=== PATIENT | male | born 1950 | race Caucasian/White ===

== ENCOUNTER 2016-11-09 19:31 | Inpatient (IN) | payer MEDICARE, OTHER ==
[~2016-11-09] VITALS: Ht 175.3 cm; Wt 86.8 kg
--- NOTE | ~2016-11-09 | CON ---
PATIENT'S NAME: MADDISON IBARRA [facility] AGE: 66 Y [address] ROOM: [place] [address] LOCATION: [facility] ADMIT DATE: 11/09/2016 Consultation DISCHARGE DATE: FAMILY PHYSICIAN: Marjorie Caicedo MD ATTENDING PHYSICIAN: MARJORIE CAMARA DATE OF CONSULTATION: 11/10/2016 REFERRING PHYSICIAN: MARJORIE CAMARA MD CONSULT REQUESTED BY: Dr. Camara. REASON FOR CONSULTATION: Thoracic spine fracture. PATIENT IDENTIFICATION: Mr. Maddison Ibarra is a 66-year-old male. PRESENTING COMPLAINT: Fall from pivot. HISTORY OF PRESENT ILLNESS: The patient fell from a pivot on November 09, 2016. He sustained a fracture of his left femur as well as a small thoracic spine fracture. His femur fracture has been fixed, and I was consulted to see him for his thoracic spine fracture. The patient says he is only vaguely aware of the thoracic pain. It does not bother him to any significant degree. PAST MEDICAL HISTORY: Significant for Parkinson disease. The patient was also checked for multiple myeloma last year, but it appears he does not have multiple myeloma. CURRENT MEDICATIONS: Please see chart. ALLERGIES: PLEASE SEE CHART. REVIEW OF SYSTEMS: A 10-point review of systems was carried out. The only abnormal findings are as described in the History of Present Illness. FAMILY HISTORY: Noncontributory. PATIENT'S NAME: MADDISON IBARRA [facility] AGE: 66 Y [address] ROOM: [place] [address] LOCATION: [facility] ADMIT DATE: 11/09/2016 Consultation DISCHARGE DATE: FAMILY PHYSICIAN: Marjorie Caicedo MD ATTENDING PHYSICIAN: MARJORIE CAMARA PHYSICAL EXAMINATION: NEUROLOGIC: The patient is a healthy-looking male who is alert and cooperative through the examination. Speech is intact. Cranial Nerves: No deficits seen. Motor Examination: The patient has had surgery to his left femur. Otherwise, he has normal strength in all the muscle groups of his upper and lower extremities. CARDIOVASCULAR: Heart sounds present. RESPIRATORY: The patient is not short of breath at bedside. HEAD: His head is atraumatic. EYES AND EARS: No evidence of trauma. SKIN: No skin rashes or skin masses. REVIEW OF IMAGING STUDIES: The patient has had a thoracic spine CT done. The CT scan shows a mild compression fracture of the superior endplate of the T4 vertebra. There is no retropulsion. There is no spinal canal compromise. ASSESSMENT: A 66-year-old male with mild thoracic spine compression fracture. MEDICAL DECISION MAKING: At this time, there is no indication for neurosurgical intervention. The patient can ambulate with therapy. I have asked him to let us know if his pain increases, and we will repeat an x-ray to check the fracture at that time. For now, the patient does not require any neurosurgical intervention. MD PORSHA [place]/modl /[id number] d: 11/11/16 1130 t: 11/15/16 1552, CONSULTATION REPORT
--- NOTE | ~2016-11-09 | HP ---
PATIENT'S NAME: MADDISON IBARRA [facility] AGE: 66 Y [address] ROOM: [place] [address] LOCATION: [facility] ADMIT DATE: 11/09/2016 History & Physical DISCHARGE DATE: FAMILY PHYSICIAN: Marjorie Caicedo MD ATTENDING PHYSICIAN: MARJORIE CAMARA DATE OF SERVICE: HISTORY OF PRESENT ILLNESS: Mr. Ibarra is a 66-year-old male transferred from [place] after having been diagnosed with a left hip fracture as a result of a fall (from a height of approximately 12 feet) off a pivot. The accident occurred this afternoon. He was unable to get up because of left hip pain. He was unable to get into a vehicle with assistance. He was taken to the local emergency room by ambulance, where he was diagnosed with a femoral neck fracture. He denies history of preexisting left hip pain. He complains of upper thoracic spine pain. He notes generalized, partially decreased sensation to light touch in his left foot. He has chronic cervical spine pain, but this is no more severe compared to baseline. He denies pain in his other 3 extremities. He states he landed directly on his left side. At baseline, the patient is an independent community ambulator. He has Parkinson disease, but he still is completely independent and requires no assistive device for ambulation. ACTIVE MEDICAL PROBLEMS: Parkinson disease and history of osteoporosis (diagnosed by DEXA scan and treated with Prolia). PRESENT MEDICATIONS: 1. Selegiline. 2. Sinemet. ALLERGIES: ASPIRIN AND MORPHINE. SOCIAL HISTORY: . He smoked for 50 years, but discontinued last month. He is accompanied by his . PAST SURGICAL HISTORY: Includes removal of an unspecified cyst from his left foot by a legal instructor earlier this year. REVIEW OF SYSTEMS: He denies chest pain or shortness of breath. He denies history of deep venous thrombosis. He denies lumbar spine pain. PATIENT'S NAME: MADDISON IBARRA [facility] AGE: 66 Y [address] ROOM: [place] [address] LOCATION: [facility] ADMIT DATE: 11/09/2016 History & Physical DISCHARGE DATE: FAMILY PHYSICIAN: Marjorie Caicedo MD ATTENDING PHYSICIAN: MARJORIE CAMARA PHYSICAL EXAMINATION: GENERAL: Alert, oriented, well-hydrated, well-nourished, stoic gentleman, who is in no distress. MUSCULOSKELETAL: He is holding his left leg slightly flexed and externally rotated at the hip, but there does not appear to be a significant leg-length discrepancy. Left hip range of motion is not assessed due to the diagnosed fracture. There is no pain with passive range of motion of the right hip. There is no swelling, tenderness, effusion, or deformity at either knee. There is no swelling, tenderness, or deformity at either ankle. He demonstrates no pain with active range of motion of all joints in both upper extremities. There is no pain with active range of motion of his cervical spine. Sensation to light touch is present throughout the left foot, but subjectively decreased throughout the left foot. There is no peripheral edema in either lower extremity. There are no active skin lesions throughout either lower extremity. Dorsiflexion and plantar flexion strength of the left ankle are both 4/5. 2+ posterior tibial pulse bilaterally. RADIOGRAPHS: Left hip radiographs demonstrate an angulated femoral neck fracture. There is no lytic lesion. There is no hardware. There is no joint space narrowing. The left hip fracture is further evaluated via CT scan. There is apex anterior angulation of the femoral neck fracture of approximately 45 to 60 degrees, but there is no significant shortening. There is no significant displacement (the deformity appears to be purely angular). The patient had CT scans of his entire spine, chest, abdomen, and pelvis upon arrival in the emergency room. These were ordered by the emergency room physician. The radiologist has interpreted the thoracic spine CT scan as demonstrating a nondisplaced thoracic 4th vertebral body fracture. IMPRESSION: Markedly angulated left femoral neck fracture without significant displacement. Parkinson disease. History of osteoporosis. History of cervical spine degenerative disk disease. Nondisplaced fracture of thoracic vertebral body #4. RECOMMENDATIONS: I had a lengthy discussion (with the patient and his ) regarding relative risks, benefits, and limitations of internal fixation versus hemiarthroplasty versus total hip arthroplasty versus nonoperative treatment. The patient has elected to proceed with reduction and internal fixation with cannulated screws. He understands and acknowledges potential adverse sequelae of the injury itself as well as risks, benefits, limitations, and alternatives to this procedure. We have specifically discussed the potential for PATIENT'S NAME: MADDISON IBARRA [facility] AGE: 66 Y [address] ROOM: [id number] [place], [place] [address] LOCATION: [facility] ADMIT DATE: 11/09/2016 History & Physical DISCHARGE DATE: FAMILY PHYSICIAN: Marjorie Caicedo MD ATTENDING PHYSICIAN: MARJORIE CAMARA infection, deep venous thrombosis, pulmonary embolism, neurovascular complications, blood transfusion risks, malunion, nonunion, avascular necrosis, and the potential need for conversion to hemiarthroplasty versus total hip arthroplasty. I have informed the patient that I perceive an approximately 50% chance of success and a 50% combined risk of avascular necrosis, malunion, or nonunion (under which circumstances, he would need to be converted to hip arthroplasty). He would prefer to accept these risks in favor of attempting to salvage his own hip. We have discussed the anticipated necessity for 8 weeks of toe-touch weightbearing. The patient has been placed at bedrest. Mechanical DVT prophylaxis and incentive spirometry will be initiated. The Spine team will be consulted to evaluate and make treatment recommendations for his thoracic spine fracture. We will proceed to surgery this evening. Informed consent has been granted by the patient and his spouse. MD YAMILETH MOTA/sallyl /[id number] D: 259 T: 753 HISTORY & PHYSICAL
--- NOTE | ~2016-11-09 | OR ---
PATIENT'S NAME: MADDISON IBARRA [facility] AGE: 66 Y [address] ROOM: [facility] [place], [place] [address] LOCATION: [facility] ADMIT DATE: 11/09/2016 OR/Procedure Report DISCHARGE DATE: FAMILY PHYSICIAN: Marjorie Caicedo MD ATTENDING PHYSICIAN: MARJORIE CAMARA SURGEON: Marjorie Camara MD YEAST CULTURE DEVELOPER: None. DATE OF PROCEDURE: 11/09/2016 PREOPERATIVE DIAGNOSIS: Left femoral neck fracture. POSTOPERATIVE DIAGNOSIS: Left femoral neck fracture. PROCEDURE PERFORMED: Closed reduction and percutaneous internal fixation of left femoral neck fracture. ANESTHESIA: General endotracheal anesthesia. ESTIMATED BLOOD LOSS: Less than 5 mL. DRAINS: None. SPECIMEN: None. COMPLICATIONS: None. IMPLANTS: [place] Asnis 8.0 mm partially threaded cannulated cancellous screws x3. INDICATION FOR PROCEDURE: Mr. Ibarra is a 66-year-old male who fell approximately 12 feet off a pivot landing on his left hip with resultant left hip fracture earlier today. Preoperative plain radiographs and CT scan of the left hip demonstrate a significantly angulated transcervical noncomminuted fracture with significant apex anterior angulation but minimal displacement. Risks, benefits, limitations, and alternatives to this procedure have been thoroughly reviewed and informed consent has been granted. I have informed the patient that he has an approximately 50% combined risk of developing avascular necrosis, symptomatic malunion, and/or nonunion (under which circumstances, conversion to hip arthroplasty may be necessary). The patient has expressed a preference to attempt to salvage his own hip. We have discussed the potential for infection, neurovascular complications, deep venous thrombosis, pulmonary embolism, and blood transfusion risks as well. Informed consent granted. DESCRIPTION OF PROCEDURE: The patient positioned supine on the fracture table PATIENT'S NAME: MADDISON IBARRA [facility] AGE: 66 Y [address] ROOM: [facility] [place], [place] [address] LOCATION: [facility] ADMIT DATE: 11/09/2016 OR/Procedure Report DISCHARGE DATE: FAMILY PHYSICIAN: Marjorie Caicedo MD ATTENDING PHYSICIAN: MARJORIE CAMARA after administration of general endotracheal anesthesia and prophylactic antibiotics. Both feet and ankles were well padded. The right foot was placed into a stirrup-type leg mckeon. A well-padded groin post was placed. The left foot was placed into a traction boot. The hip was reduced under fluoroscopic guidance by applying longitudinal traction through the left foot followed by internal rotation until anatomic reduction was confirmed under AP and lateral fluoroscopic guidance. The lateral aspect of the left hip was subsequently prepped and draped with vigilant sterile technique. The lateral cortex of the proximal femur was approached through a direct lateral longitudinal incision which was carried sharply through the iliotibial band. Three parallel guidewires were placed in an inverted triangular configuration, and the three partially threaded cannulated cancellous screws were placed over the guidewires to the appropriate depth. Anatomic reduction and appropriate placement of all hardware was confirmed under AP and lateral fluoroscopic guidance. The incision was thoroughly irrigated with sterile saline containing bacitracin several times throughout the operation. The fascia was closed with multiple simple interrupted #1 Vicryl sutures. The skin was closed with superficial buried interrupted 2-0 Vicryl sutures, followed by a running subcuticular 3-0 Monocryl suture, followed by Dermabond, followed by Steri- Strips with benzoin. The dressing consisted of an occlusive Mepilex dressing. There were no complications. MD YAMILETH MOTA/jason /[id number] d: 11/10/16 0331 t: 11/14/16 0756, OPERATIVE SUMMARY
--- NOTE | ~2016-11-09 | ER ---
PATIENT'S NAME: MADDISON IBARRA [facility] AGE: 66 Y [address] ROOM: [place] [address] LOCATION: [facility] ADMIT DATE: 11/09/2016 ER/Outpatient Report DISCHARGE DATE: FAMILY PHYSICIAN: Marjorie Caicedo MD ATTENDING PHYSICIAN: MARJORIE CAMARA Admission date and time documented on the medical record. I saw the patient at 1930 hours. CHIEF COMPLAINT: 15 foot fall off center pivot. HISTORY OF PRESENT ILLNESS: The patient is a 66-year-old male, who was up on a center pivot, lost his balance, fell about 15 feet landing on his left side on the ground. Taken to [place], [place] and was found to have a femoral neck fracture of the left hip. Transferred by ground ambulance to [facility] for further evaluation and treatment. On arrival, the patient was awake, alert, responsive. He had some pain between his shoulder blades, mid thoracic spine area, and his left hip. He does not think he hit his head. Does not think he had lost consciousness. No chest pain, shortness of breath. No abdominal pain. No abdominal distention. No nausea, vomiting, or diarrhea. No incontinence of stool or urine. No other extremity pain other than the left hip that radiates pain down to his left knee. No upper extremity pain. No recent coughs, colds, flus, fever, chills, or sweats. He has not smoked for 6 weeks. No lightheadedness or dizziness. No skin eruptions or rash. He does have a history of Parkinson's. No psych issues or endocrine problems. HOME MEDICATIONS: See attached medication list. ALLERGIES: ASPIRIN, MORPHINE, AND SULFATE. SOCIAL HISTORY: Nonsmoker x6 weeks, nondrinker. SIGNIFICANT PAST MEDICAL HISTORY: Remote tobacco abuse. Parkinson disease. OPERATIONS: Cyst removed from left foot, left shoulder, and fatty lipoma from his back. REVIEW OF SYSTEMS: PATIENT'S NAME: MADDISON IBARRA [facility] AGE: 66 Y [address] ROOM: [place] [address] LOCATION: [facility] ADMIT DATE: 11/09/2016 ER/Outpatient Report DISCHARGE DATE: FAMILY PHYSICIAN: Marjorie Caicedo MD ATTENDING PHYSICIAN: MARJORIE CAMARA All systems reviewed by me are negative with the exception of those discussed in the history of present illness. PHYSICAL EXAMINATION: VITAL SIGNS: Temperature 97.3, tympanic; pulse 93; respirations 16; blood pressure 134/64; O2 saturation on room air is 98%. HEENT: Head: Normocephalic. No abrasion, contusion, laceration, swelling of the scalp or face. EYES: Extraocular muscles are intact. PERRL. Sclerae and conjunctivae are clear, nonicteric. No hyphema. No subconjunctival hemorrhages. Ears: Clear TMs bilaterally. NOSE: Clear. THROAT: Clear. Mucous membranes are moist. Teeth and jaw intact. NECK: No tenderness. Range of motion is full. No nuchal rigidity. No thyromegaly or cervical adenopathy. SPINE: Some mild tenderness between his shoulder blades, but no step-off fracture deformity. LUNGS: Clear. Good air flow. No rales, rhonchi, or wheezes. HEART: Regular. Pulses are palpable. No chest wall or ribcage pain to palpation. ABDOMEN: Soft, flat, nondistended, nontender. Active bowel tones. No organomegaly or abnormal masses palpable. No CVA tenderness. PELVIS: Stable and nontender. EXTREMITIES: Moves all 4 extremities other than left lower extremity. He has a left femoral neck fracture, swelling. NEUROVASCULAR: Intact. Pulses are intact. SKIN: Clear. No skin eruptions or rash. DIAGNOSTIC DATA: CT scan of the head showed no intracranial bleed, midline shift, mass effect, or skull fracture. CT scan of the cervical spine showed no acute fracture or subluxation. CT scan of the thoracic spine showed no subluxation. He did have a tiny endplate compression at T4. Lumbosacral spine showed no acute fracture or subluxation. Chest CT showed no mediastinal changes. No rib fractures. No pulmonary contusion, pneumothorax, pleural effusions. CT scan of the abdomen and pelvis showed left femoral neck fracture of the hip. No other pelvic injuries. No solid organ injuries. No free fluid, free air. All CT scans were read by Radiology, see dictated transcribed reports. Pelvis, left hip plain film shows a femoral neck fracture of the left hip. We will review all plain films with the radiologist and orthopedic surgeon. LABORATORY DATA: White count is 13,700, 82 segs, 10 lymphs, 7 monos, 1 eosinophil. Hemoglobin is 15.1 with hematocrit of 45.4, platelet count is 292,000. PTT was 26, pro time is 10.4 with an INR of 1.0. Clot tube drawn. Urine on a cath specimen PATIENT'S NAME: MADDISON IBARRA [facility] AGE: 66 Y [address] ROOM: [place] [address] LOCATION: [facility] ADMIT DATE: 11/09/2016 ER/Outpatient Report DISCHARGE DATE: FAMILY PHYSICIAN: Marjorie Caicedo MD ATTENDING PHYSICIAN: MARJORIE CAMARA showed rare whites, 0-2 reds, 0-2 epithelial cells, negative bacteria per high- powered field, negative nitrites on dipstick. CMS was normal except for low calcium of 8.1, low alkaline phosphatase of 29, low ALT of 10. CPK was elevated at 533. [id number] cardiac enzymes were normal. Normal saline was started at 125 mL an hour. The patient was kept n.p.o., was given fentanyl 50 mcg IV in the emergency room for pain. Discussed the patient with Dr. Camara, orthopedic surgeon. Dr. Camara did come down to the emergency room to evaluate the patient. We will proceed on his recommendations. IMPRESSION: A 15-foot fall from a center pivot landing on dirt, left side, suffering a femoral neck fracture, left hip. The patient also has a tiny endplate compression fracture T4 on CT scan. No other injuries were found. PLAN: The patient will be taken to operation by Dr. Camara for fixation repair, left femoral neck hip fracture. Discussion ensued with the patient concerning my findings and recommendations, he understands. MD MINA LASSITER/modl /[id number] d: 11/10/16116 t: 11/10/163, OUTPATIENT REPORT
[2016-11-09 20:01] LABS: BILIRUBIN URINE NEGATIVE (NEGATIVE); BLOOD URINE 10 /UL (NEGATIVE); COLOR URINE YELLOW (YELLOW); GLUCOSE URINE NEGATIVE (NEGATIVE); KETONE URINE 50 mg/dL (NEGATIVE); LEUKOCYTES URINE NEGATIVE /UL (NEGATIVE); NITRITE URINE NEGATIVE (NEGATIVE); PROTEIN URINE NEGATIVE (NEGATIVE); TURBIDITY URINE CLEAR (CLEAR); UROBILINOGEN URINE NORMAL (NORMAL)
[2016-11-09 20:06] LABS: BASOPHIL % 0.3 %; EOSINOPHIL # 0.1 K/uL (0.0-0.5); EOSINOPHIL % 0.6 %; HEMATOCRIT 45.4 % (37.0-53.0); HEMOGLOBIN 15.1 g/dL (11.0-16.0); IMMATURE GRANULOCYTE % 0.3 %; LYMPHOCYTE # 1.3 K/uL (0.8-4.0); LYMPHOCYTE % 9.8 %; MCH 30.1 pg (27.0-34.0); MCHC 33.3 gm/dL (32.0-36.5); MCV 90.6 fl (83.0-98.0); MONOCYTE # 0.9 K/uL (0.0-1.0); MONOCYTE % 6.9 %; MPV 9.4 fl (9.4-12.4); NEUTROPHIL # (ANC) 11.2 K/uL (1.4-9.0); NEUTROPHIL % 82.1 %; NRBC % 0 /100WBC (0-0.00); PLATELET COUNT 292 K/uL (150-450); RBC 5.01 M/uL (3.50-5.50); RDW-CV 12.7 % (11.9-14.6); WBC 13.7 K/uL (4.0-11.0)
[2016-11-09 20:08] LABS: BACTERIA URINE NEGATIVE (NEGATIVE); EPITHELIAL URINE 0-2 #/HPF (NEGATIVE); RBC URINE 0-2 #/HPF (NEGATIVE); WBC URINE RARE #/HPF (NEGATIVE)
[2016-11-09 20:15] LABS: PROTIME 10.4 SECONDS (9.6-11.1); PTT 26 SECONDS (25-32)
[2016-11-09 20:25] LABS: ALBUMIN 3.7 gm/dL (3.5-5.0); ALT 10 IU/L (12-78); ANION GAP 13.8 (10.0-19.0); AST 24 IU/L (10-40); BLOOD UREA NITROGEN 16 mg/dL (6-24); CALCIUM 8.1 mg/dL (8.5-10.5); CHLORIDE 108 mMol/L (96-110); CO2 25 mMol/L (22-32); CPK 533 IU/L (35-332); ESTIMATED GFR (MDRD EQUATION) > 60; POTASSIUM 3.8 mMol/L (3.7-5.1); SODIUM 143 mMol/L (135-145); TOTAL BILIRUBIN 0.6 mg/dL (0.0-1.5); TOTAL PROTEIN 6.6 g/dL (6.0-8.4)
[2016-11-09 20:27] LABS: ALK PHOS 29 IU/L (33-138)
[2016-11-09] MEDS ORDERED: [UNRECOGNIZED DRUG - OTHER] PO (23:56)
[2016-11-09] MEDS ORDERED: SINEMET 25-1001 EACH PO (23:58)
[2016-11-10 05:59] LABS: HEMATOCRIT 43.5 % (37.0-53.0); HEMOGLOBIN 14.6 g/dL (11.0-16.0)
[2016-11-10] MEDS ORDERED: SINEMET 25-1001 EACH PO ×2 (06:36→06:37)
[2016-11-11] MEDS ORDERED: MIRALAX17 GM PO (11:51)
[2016-11-11] MEDS ORDERED: COLACE100 MG PO (11:51)
[2016-11-11] MEDS ORDERED: XARELTO10 MG PO (11:52)
[2016-11-11] MEDS ORDERED: NORCO 5-325 TA1 EACH PO (11:53)
[2016-11-11] MEDS ORDERED: VALIUM5 MG PO (11:54)
== END 2016-11-11 12:53 | disposition disaster alternative care site (69) | DRG 481 ==
LOC: GACC 19:31 → G3N 22:20
PROVIDERS: Emergency Medicine; ADMIT Orthopaedic Surgery
PROC: 0QS704Z Reposition Left Upper Femur with Internal Fixation Device, Open Approach (ICD-10-PCS; principal; 2016-11-09)
DX: S72.032A Displaced midcervical fracture of left femur, initial encounter for closed fracture (principal); S22.069A Unspecified fracture of T7-T8 vertebra, initial encounter for closed fracture; G20 Parkinson's disease; W17.89XA Other fall from one level to another, initial encounter; Z87.891 Personal history of nicotine dependence
CPT/HCPCS: C1713; J0690; J3010; J7120; J7121; Q9967

== ENCOUNTER → 2016-12-13 | Outpatient (CLI) | payer MEDICARE, OTHER ==
[~2016-12-13] MED LIST: COLACE100 MG PO; MIRALAX17 GM PO; NORCO 5-325 TA1 EACH PO; SINEMET 25-1001 EACH PO; VALIUM5 MG PO; XARELTO10 MG PO; [UNRECOGNIZED DRUG - OTHER] PO
--- NOTE | ~2016-12-13 | ENPV ---
Vascular Lower Extremities DVT Study Procedure Demographics Patient Name MADDISON IBARRA Date of Study 12/13/2016 Patient Number [id number] Gender Male Date of 1950 Age 66 Visit Number [id number] Height Accession Number [id number] Weight Room Number BSA BMI Referring Marifer Porter MD Interpreting Callum Jensen MD Physician Cresencio De Leon MD Physician Physician Ordering Physician Cresencio De Leon MD Flower Maker Manager Technology Delmy Al[facility]endarez [facility] Conclusions Summary TECHNIQUE: The veins of the lower extremity on the left were evaluated from the groin to the ankle using mcadams scale, compression, augmentation. Venous hemodynamics were evaluated with color and spectral Doppler. FINDINGS: 1. The deep and superficial venous structures of the left lower extremity are normal at the groin down through the popliteal. Posterior tibial vein is patent. 2. The peroneal veins show subacute nonocclusive thrombus with continuous blood flow is. Phasicity has been lost. IMPRESSION: Subacute DVT left peroneal veins. Procedure Type of Study: Veins:Lower Extremities DVT Study, Lower Extremity Left. Indications for Study:Pain in Limb and Swelling of Limb. Patient Status:Routine. Study Location:Vascular Lab. Technical Quality:Good visualization. - Preliminary reported to:Dr. Dupont. Velocities are measured in cm/s ; Diameters are measured in cm Right Lower Extremities DVT Study Measurements Right 2D and Doppler Measurements + + + + +------+------+ + !Location !Visualized!Compressibility!Thrombosis!Signal!Reflux!Reflux ! ! ! ! ! ! ! !(sec) ! + + + + +------+------+ + !GSV Thigh !Yes !Yes !None !Phasic! ! ! + + + + +------+------+ + !Common !Yes !Yes !None !Phasic! ! ! !Femoral ! ! ! ! ! ! ! + + + + +------+------+ + Left Lower Extremities DVT Study Measurements Left 2D and Doppler Measurements +---------+ + + + +------+--------+ !Location !Visualized!Compressibility!Thrombosis!Signal !Reflux!Reflux ! ! ! ! ! ! ! !(sec) ! +---------+ + + + +------+--------+ !GSV Thigh!Yes !Yes !None !Phasic ! ! ! +---------+ + + + +------+--------+ !Common !Yes !Yes !None !Phasic ! ! ! !Femoral ! ! ! ! ! ! ! +---------+ + + + +------+--------+ !Prox !Yes !Yes !None !Phasic ! ! ! !Femoral ! ! ! ! ! ! ! +---------+ + + + +------+--------+ !Mid !Yes !Yes !None ! ! ! ! !Femoral ! ! ! ! ! ! ! +---------+ + + + +------+--------+ !Dist !Yes !Yes !None !Phasic ! ! ! !Femoral ! ! ! ! ! ! ! +---------+ + + + +------+--------+ !Popliteal!Yes !Yes !None !Phasic ! ! ! +---------+ + + + +------+--------+ !Gastroc !Yes !Yes !None ! ! ! ! +---------+ + + + +------+--------+ !PTV !Yes !Yes !None ! ! ! ! +---------+ + + + +------+--------+ !Peroneal !Yes !No !Sub-acute !Continuous! ! ! +---------+ + + + +------+--------+ Signature dtt: Stanford Nolen dtd: 12/13/16 1405 Physician Self Edit
== END | disposition disaster alternative care site (69) ==
LOC: GCAR 13:30
DX: S72.009D Fracture of unspecified part of neck of unspecified femur, subsequent encounter for closed fracture with routine healing (principal); I82.890 Acute embolism and thrombosis of other specified veins; X58.XXXD Exposure to other specified factors, subsequent encounter